=== PATIENT | female | born 1985 | race Caucasian/White ===

== ENCOUNTER 2018-12-23 16:17 | Emergency (ER) | payer OTHER, SELFPAY ==
[2018-12-23 16:42] LABS: #Eosinphils 0.1 thou/uL (0.0-0.7); #Lymphocytes 1.5 thou/uL (1.20-3.40); #Monocytes 0.5 thou/uL (0.11-0.59); #Neutrophils 4.1 thou/uL (1.40-6.50); %Basophils 0.5 % (0.0-1.0); %Eosinophils 2.1 % (0.0-10.0); %Monocytes 7.7 % (0.0-10.0); %Neutrophils 65.8 % (42.0-75.0); Hemoglobin 14.8 g/dL (12.0-16.0); Mean Corpuscular HGB CONC 35.4 g/dL (32.0-36.0); Mean Corpuscular Hemoglobin 30.9 pg (27.0-31.0); Mean Corpuscular Volume 87.4 fL (78.0-98.0); Mean Platelet Volume 7.6 fL (7.4-10.4); Platelet Count 220 thou/uL (130-400); RBC Distribution Width 11.6 % (11.5-14.5); Red Blood Cell (RBC) Count 4.77 mill/uL (4.20-5.40); White Blood Cell (WBC) Count 6.3 thou/uL (4.8-10.8)
--- NOTE | 2018-12-23 16:48 | RAD ---
XR Chest 1 View Portable HISTORY: Chest pain and shortness of breath COMPARISON: None FINDINGS: The heart size is normal. The lungs are well expanded without focal areas of consolidation, pneumothorax or pleural effusions. IMPRESSION: No radiographic evidence of acute cardiopulmonary process.
[2018-12-23 16:58] LABS: ALT (SGPT) 18 U/L (8-55); AST (SGOT) 23 U/L (5-34); Albumin 4.7 g/dL (3.5-5.0); Alkaline Phosphatase 49 U/L (40-150); Anion Gap 12 mmol/L (10-20); BUN (Urea Nitrogen) 7 mg/dL (7.0-18.7); CK (CPK) 165 U/L (29-168); Calc. Creatinine Clearance 0 mL/min (70-130); Calcium 9.6 mg/dL (7.8-10.44); Carbon Dioxide 26 mmol/L (22-29); Chloride 105 mmol/L (98-107); Estimated GFR-MDRD 66; Globulin 2.7 g/dL (2.4-3.5); Glucose 107 mg/dL (70-105); Protein, Total 7.4 g/dL (6.0-8.3); Sodium 139 mmol/L (136-145)
[2018-12-23 20:16] LABS: Troponin I Less than 0.010 ng/mL (< 0.028)
[2018-12-23] MEDS ORDERED: Lorazepam 1 MG TAB ONE (21:47)
[2018-12-23 22:35] LABS: BHCG - Serum Negative (NEGATIVE); Pregs Control Background? CLEAR/WHITE (CLR/WHITE); Pregs Control Bar Appear? YES (CONTROL BAR)
--- NOTE | 2018-12-23 23:04 | CT ---
EXAM: CT angiogram of the chest including 3-D rendering: HISTORY: Chest heaviness shortness of breath dizziness COMPARISON: None FINDINGS: There is adequate opacification of the pulmonary arteries. No evidence for aortic aneurysm or dissection. No convincing CT evidence for acute pulmonary embolism. No significant acute pulmonary parenchymal process. No evidence for mediastinal mass or adenopathy. No evidence for pleural or pericardial effusion. The visualized upper abdomen is unremarkable. 0.6 cm diameter pleural-based nodule in the left anteri or costophrenic angle region. IMPRESSION: No convincing CT evidence for acute pulmonary embolism. 0.6 cm diameter pleural-based nodule in the anterior left costophrenic angle region. Code lung nodule
== END 2018-12-23 23:15 | disposition home or self-care (01) ==
LOC: ERS 16:17
DX: R91.1 Solitary pulmonary nodule (principal); L03.112 Cellulitis of left axilla; B86 Scabies; F41.9 Anxiety disorder, unspecified; F17.210 Nicotine dependence, cigarettes, uncomplicated
CPT/HCPCS: 36415; 71045; 71275; 80053; 82550; 84484; 84703; 85025; 85379; 93005; 96360

== ENCOUNTER 2019-02-14 03:15 | Emergency (ER) | payer SELFPAY ==
[2019-02-14] MEDS ORDERED: hydrOXYzine 25 MG TAB ONE (04:31)
== END 2019-02-14 05:45 | disposition home or self-care (01) ==
LOC: ERS 03:15
DX: R21 Rash and other nonspecific skin eruption (principal); E03.9 Hypothyroidism, unspecified; F41.9 Anxiety disorder, unspecified; F17.210 Nicotine dependence, cigarettes, uncomplicated
CPT/HCPCS: 99283

== ENCOUNTER 2019-02-28 07:55 | Emergency (ER) | payer SELFPAY ==
[2019-02-28 09:01] LABS: ALT (SGPT) 17 U/L (8-55); AST (SGOT) 24 U/L (5-34); Acetaminophen Less than 6.0 mcg/mL (10.0-30.0); Albumin 4.4 g/dL (3.5-5.0); Alcohol Less than 10 mg/dL (Less than 10); Alkaline Phosphatase 48 U/L (40-150); Anion Gap 12 mmol/L (10-20); BUN (Urea Nitrogen) 8 mg/dL (7.0-18.7); Bilirubin, Total 0.8 mg/dL (0.2-1.2); Calc. Creatinine Clearance 0 mL/min (70-130); Calcium 9.3 mg/dL (7.8-10.44); Carbon Dioxide 24 mmol/L (22-29); Chloride 106 mmol/L (98-107); Estimated GFR-MDRD 83; Globulin 2.6 g/dL (2.4-3.5); Glucose 94 mg/dL (70-105); Potassium 3.1 mmol/L (3.5-5.1); Salicylate Less than 8.0 mg/dL (15.0-30.0); Sodium 139 mmol/L (136-145)
[2019-02-28 09:09] LABS: #Basophils 0.1 thou/uL (0.0-0.2); #Eosinphils 0.1 thou/uL (0.0-0.7); #Lymphocytes 2.2 thou/uL (1.20-3.40); #Monocytes 0.5 thou/uL (0.11-0.59); #Neutrophils 2.5 thou/uL (1.40-6.50); %Basophils 1.4 % (0.0-1.0); %Eosinophils 2.2 % (0.0-10.0); %Lymphocytes 40.7 % (21.0-51.0); %Neutrophils 46.7 % (42.0-75.0); Hemoglobin 13.2 g/dL (12.0-16.0); Mean Corpuscular HGB CONC 36.3 g/dL (32.0-36.0); Mean Corpuscular Hemoglobin 31.3 pg (27.0-31.0); Mean Corpuscular Volume 86.3 fL (78.0-98.0); Platelet Count 117 thou/uL (130-400); Platelet Morphology Comment Appears Decreased; RBC Distribution Width 11.6 % (11.5-14.5); RBC Morphology Normal; Red Blood Cell (RBC) Count 4.24 mill/uL (4.20-5.40); White Blood Cell (WBC) Count 5.3 thou/uL (4.8-10.8)
[2019-02-28] MEDS ORDERED: Lorazepam 2 MG/ML VIAL ONE (09:19)
[2019-02-28 09:39] LABS: Bacteria/HPF 2+ HPF (None Seen); Bilirubin Negative (Negative); Blood, Urine 2+ (Negative); Clarity Turbid (Clear); Glucose, Urine (Dipstick) Normal (Negative); Leukocyte Negative Leu/uL (Negative); Nitrite Negative (Negative); Protein, Urine (Dipstick) Negative (Neg-Trace); RBC/HPF 0-3 HPF (0-3); Squamous Epithelial 0-3 HPF (0-3); Urobilinogen Normal mg/dL (Less than 2); WBC/HPF 0-3 HPF (0-3)
[2019-02-28 09:45] LABS: Pregnancy Test - Urine (BHCG) Negative (Negative); Pregu Control Background? CLEAR/WHITE (CLR/WHITE); Pregu Control Bar Appear? YES (CONTROL BAR); Specific Gravity 1.004 (1.002-1.036)
[2019-02-28 09:48] LABS: Amphetamine Detected (NotDetected); Barbiturates Screen Not Detected (NotDetected); Benzodiazepine Screen Detected (NotDetected); Cocaine Metabolite Screen Not Detected (NotDetected); Medtox Control Line Valid? VALID (VALID); Medtox Reader # READER 1; Methadone Not Detected (NotDetected); Methamphetamine Detected (NotDetected); Opiate Screen Detected (NotDetected); Oxycodone Screen Not Detected (NotDetected); Phencyclidine (PCP) Not Detected (NotDetected); THC/Cannabinoid Screen Not Detected (NotDetected); Tricyclic Screen Not Detected (NotDetected)
[2019-02-28] MEDS ORDERED: Nicotine 14 MG PATCH TOP SCH (18:15)
[2019-02-28] MEDS ORDERED: Nicotine 14 MG PATCH ONE (18:34)
[2019-02-28] MEDS ORDERED: hydrOXYzine 25 MG TAB ONE (21:02)
[2019-03-01] MEDS ORDERED: Levothyroxine Sodium 100 MCG TAB PO SCH (06:00)
[2019-03-01] MEDS ORDERED: Bupropion 150 MG XL TAB PO SCH (09:00)
[2019-03-01] MEDS ORDERED: Ibuprofen 800 MG TAB ONE (15:01)
== END 2019-02-28 16:20 | disposition home or self-care (01) ==
LOC: ERS 07:55
DX: F23 Brief psychotic disorder (principal); F15.10 Other stimulant abuse, uncomplicated; F22 Delusional disorders; F41.9 Anxiety disorder, unspecified; I25.2 Old myocardial infarction; E03.9 Hypothyroidism, unspecified; F31.9 Bipolar disorder, unspecified; F90.9 Attention-deficit hyperactivity disorder, unspecified type; F17.210 Nicotine dependence, cigarettes, uncomplicated; Z79.899 Other long term (current) drug therapy
CPT/HCPCS: 36415; 80053; 80306; 80307; 81003; 81015; 81025; 84443; 85025; 87077; 87086; 93005; 96372; J2060

== ENCOUNTER 2019-03-05 22:08 | Emergency (ER) | payer SELFPAY ==
--- NOTE | 2019-03-05 22:59 | RAD ---
EXAM: Single view of the chest HISTORY: Chest pain COMPARISON: 12/23/2018 FINDINGS: Single view of the chest shows a normal sized cardiomediastinal silhouette. There is no jonathan dence of consolidation, mass, or pleural effusion. The bones are unremarkable. IMPRESSION: No evidence of acute cardiopulmonary disease
--- NOTE | 2019-03-05 23:36 | ULT ---
EXAM: Right upper extremity venous ultrasound HISTORY: Right upper extremity pain and edema COMPARISON: None TECHNIQUE: Multiplanar grayscale and color Doppler images were obtained in a right upper extremity ve nous ultrasound. Spectral analysis of the Doppler waveforms were performed. FINDINGS: The internal jugular vein demonstrates normal compression and flow without evidence of thrombus. The subclavian vein demonstrates normal flow and augmentation without evidence of thrombus. The axillary and brachial veins demonstrate normal compression, flow, and augmentation without eviden ce of thrombus. The deep venous structures distal to the elbow are patent without thrombus. Clot is seen in the right basilic vein from the mid upper arm to the proximal forearm The cephalic vein is patent. IMPRESSION: 1. No evidence of DVT. 2. Basilic vein thrombus
== END 2019-03-05 23:59 | disposition home or self-care (01) ==
LOC: ERS 22:08
DX: I80.8 Phlebitis and thrombophlebitis of other sites (principal); R07.9 Chest pain, unspecified; I25.2 Old myocardial infarction; E03.9 Hypothyroidism, unspecified; F41.9 Anxiety disorder, unspecified; F31.9 Bipolar disorder, unspecified; F90.9 Attention-deficit hyperactivity disorder, unspecified type; F17.210 Nicotine dependence, cigarettes, uncomplicated; Z79.899 Other long term (current) drug therapy
CPT/HCPCS: 71045; 93005

== ENCOUNTER 2019-03-27 00:27 | Emergency (ER) | payer SELFPAY | END 2019-03-27 01:10 | disposition home or self-care (01) | LOC: ERS 00:27 | DX: L02.31 Cutaneous abscess of buttock (principal); E03.9 Hypothyroidism, unspecified; F41.9 Anxiety disorder, unspecified; F31.9 Bipolar disorder, unspecified; F90.9 Attention-deficit hyperactivity disorder, unspecified type; F43.10 Post-traumatic stress disorder, unspecified; F17.210 Nicotine dependence, cigarettes, uncomplicated; Z86.73 Personal history of transient ischemic attack (TIA), and cerebral infarction without residual deficits; Z79.899 Other long term (current) drug therapy | CPT/HCPCS: 99282 ==

== ENCOUNTER 2019-04-16 01:11 | Emergency (ER) | payer SELFPAY ==
[2019-04-16 03:35] LABS: #Basophils 0.1 thou/uL (0.0-0.2); #Eosinphils 0.2 thou/uL (0.0-0.7); #Lymphocytes 2.5 thou/uL (1.20-3.40); #Monocytes 0.6 thou/uL (0.11-0.59); #Neutrophils 2.2 thou/uL (1.40-6.50); %Basophils 1.4 % (0.0-1.0); %Eosinophils 3.6 % (0.0-10.0); %Lymphocytes 44.7 % (21.0-51.0); %Monocytes 10.2 % (0.0-10.0); %Neutrophils 40.2 % (42.0-75.0); Hemoglobin 13.5 g/dL (12.0-16.0); Mean Corpuscular HGB CONC 35.9 g/dL (32.0-36.0); Mean Corpuscular Hemoglobin 31.4 pg (27.0-31.0); Mean Corpuscular Volume 87.3 fL (78.0-98.0); Mean Platelet Volume 7.8 fL (7.4-10.4); Platelet Count 115 thou/uL (130-400); RBC Distribution Width 11.6 % (11.5-14.5); White Blood Cell (WBC) Count 5.6 thou/uL (4.8-10.8)
[2019-04-16 03:54] LABS: ALT (SGPT) 15 U/L (8-55); AST (SGOT) 21 U/L (5-34); Acetaminophen Less than 6.0 mcg/mL (10.0-30.0); Albumin 4.3 g/dL (3.5-5.0); Alcohol Less than 10 mg/dL (Less than 10); Alkaline Phosphatase 46 U/L (40-110); Anion Gap 14 mmol/L (10-20); BUN (Urea Nitrogen) 6 mg/dL (7.0-18.7); Bilirubin, Total 0.4 mg/dL (0.2-1.2); Calc. Creatinine Clearance 0 mL/min (70-130); Carbon Dioxide 24 mmol/L (22-29); Chloride 104 mmol/L (98-107); Estimated GFR-MDRD 81; Globulin 2.7 g/dL (2.4-3.5); Glucose 82 mg/dL (70-105); Potassium 3.6 mmol/L (3.5-5.1); Salicylate Less than 8.0 mg/dL (15.0-30.0); Sodium 138 mmol/L (136-145)
[2019-04-16 04:41] LABS: Bacteria/HPF None Seen HPF (None Seen); Bilirubin Negative (Negative); Blood, Urine Trace (Negative); Clarity Clear (Clear); Glucose, Urine (Dipstick) Normal (Negative); Leukocyte Negative Leu/uL (Negative); Nitrite Negative (Negative); Pregnancy Test - Urine (BHCG) Negative (Negative); Pregu Control Background? CLEAR/WHITE (CLR/WHITE); Pregu Control Bar Appear? YES (CONTROL BAR); Protein, Urine (Dipstick) Negative (Neg-Trace); RBC/HPF None Seen HPF (0-3); Specific Gravity 1.006 (1.002-1.036); Squamous Epithelial 0-3 HPF (0-3); Urobilinogen Normal mg/dL (Less than 2); WBC/HPF None Seen HPF (0-3)
[2019-04-16 04:51] LABS: Amphetamine Detected (NotDetected); Barbiturates Screen Not Detected (NotDetected); Benzodiazepine Screen Detected (NotDetected); Cocaine Metabolite Screen Not Detected (NotDetected); Medtox Control Line Valid? VALID (VALID); Medtox Reader # READER 1; Methadone Not Detected (NotDetected); Methamphetamine Detected (NotDetected); Opiate Screen Detected (NotDetected); Oxycodone Screen Not Detected (NotDetected); Phencyclidine (PCP) Not Detected (NotDetected); THC/Cannabinoid Screen Not Detected (NotDetected); Tricyclic Screen Not Detected (NotDetected)
== END 2019-04-16 05:15 | disposition home or self-care (01) ==
LOC: ERS 01:11
DX: F11.10 Opioid abuse, uncomplicated (principal); F15.10 Other stimulant abuse, uncomplicated; I25.2 Old myocardial infarction; E03.9 Hypothyroidism, unspecified; F31.9 Bipolar disorder, unspecified; F41.9 Anxiety disorder, unspecified; F90.9 Attention-deficit hyperactivity disorder, unspecified type; F17.210 Nicotine dependence, cigarettes, uncomplicated; F43.10 Post-traumatic stress disorder, unspecified; R11.0 Nausea; R19.7 Diarrhea, unspecified; Z79.899 Other long term (current) drug therapy
CPT/HCPCS: 36415; 36416; 80053; 80306; 80307; 81003; 81015; 81025; 84443; 85025; 93005

== ENCOUNTER 2019-05-31 22:16 | Emergency (ER) | payer SELFPAY ==
[2019-05-31] MEDS ORDERED: Lorazepam 2 MG/ML VIAL ONE ×2 (23:46→23:54)
[2019-05-31] MEDS ORDERED: diphenhydrAMINE 50 MG/ML VIAL ONE (23:54)
[2019-05-31] MEDS ORDERED: Haloperidol Lactate 5 MG/ML VIAL ONE (23:54)
[2019-06-01 01:27] LABS: #Lymphocytes 0.8 thou/uL (1.20-3.40); #Monocytes 0.4 thou/uL (0.11-0.59); #Neutrophils 7.4 thou/uL (1.40-6.50); %Basophils 0.4 % (0.0-1.0); %Eosinophils 0.3 % (0.0-10.0); %Lymphocytes 9.4 % (21.0-51.0); %Monocytes 4.3 % (0.0-10.0); %Neutrophils 85.6 % (42.0-75.0); Hemoglobin 11.8 g/dL (12.0-16.0); Mean Corpuscular Hemoglobin 31.2 pg (27.0-31.0); Mean Corpuscular Volume 89.2 fL (78.0-98.0); Mean Platelet Volume 7.5 fL (7.4-10.4); Platelet Count 157 thou/uL (130-400); RBC Distribution Width 12.1 % (11.5-14.5); Red Blood Cell (RBC) Count 3.77 mill/uL (4.20-5.40); White Blood Cell (WBC) Count 8.6 thou/uL (4.8-10.8)
[2019-06-01 01:48] LABS: ALT (SGPT) 24 U/L (8-55); AST (SGOT) 33 U/L (5-34); Acetaminophen Less than 6.0 mcg/mL (10.0-30.0); Albumin 3.7 g/dL (3.5-5.0); Alcohol Less than 10 mg/dL (Less than 10); Alkaline Phosphatase 39 U/L (40-110); Anion Gap 11 mmol/L (10-20); BUN (Urea Nitrogen) 7 mg/dL (7.0-18.7); Bilirubin, Total 0.6 mg/dL (0.2-1.2); CK (CPK) 767 U/L (29-168); Calc. Creatinine Clearance 0 mL/min (70-130); Calcium 7.8 mg/dL (7.8-10.44); Carbon Dioxide 20 mmol/L (22-29); Chloride 109 mmol/L (98-107); Estimated GFR-MDRD 86; Globulin 2.2 g/dL (2.4-3.5); Glucose 103 mg/dL (70-105); Potassium 3.3 mmol/L (3.5-5.1); Protein, Total 5.9 g/dL (6.0-8.3); Salicylate Less than 8.0 mg/dL (15.0-30.0); Sodium 137 mmol/L (136-145)
[2019-06-01 03:07] LABS: Bacteria/HPF 3+ HPF (None Seen); Bilirubin Negative (Negative); Blood, Urine Negative (Negative); Clarity Clear (Clear); Glucose, Urine (Dipstick) Normal (Negative); Leukocyte 75 Leu/uL (Negative); Nitrite 2+ (Negative); Pregnancy Test - Urine (BHCG) Negative (Negative); Pregu Control Background? CLEAR/WHITE (CLR/WHITE); Pregu Control Bar Appear? YES (CONTROL BAR); Protein, Urine (Dipstick) 20 mg/dL (Neg-Trace); RBC/HPF 0-3 HPF (0-3); Specific Gravity 1.007 (1.002-1.036); Squamous Epithelial 0-3 HPF (0-3); Urobilinogen Normal mg/dL (Less than 2)
[2019-06-01 03:12] LABS: Amphetamine Detected (NotDetected); Barbiturates Screen Not Detected (NotDetected); Benzodiazepine Screen Detected (NotDetected); Cocaine Metabolite Screen Not Detected (NotDetected); Medtox Control Line Valid? VALID (VALID); Medtox Reader # READER 1; Methadone Not Detected (NotDetected); Methamphetamine Detected (NotDetected); Opiate Screen Detected (NotDetected); Oxycodone Screen Not Detected (NotDetected); Phencyclidine (PCP) Not Detected (NotDetected); THC/Cannabinoid Screen Not Detected (NotDetected); Tricyclic Screen Not Detected (NotDetected)
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
== END 2019-06-01 11:43 | disposition home or self-care (01) ==
LOC: ERS 22:16
DX: F19.10 Other psychoactive substance abuse, uncomplicated (principal); E03.9 Hypothyroidism, unspecified; F17.210 Nicotine dependence, cigarettes, uncomplicated; Z79.899 Other long term (current) drug therapy
CPT/HCPCS: 36416; 51701; 70450; 80053; 80306; 80307; 81003; 81015; 81025; 82550; 84443; 85025; 93005; 94760; 96361; 96372; 96374; A4353; J1200; J1630; J2060

== ENCOUNTER 2019-06-27 00:34 | Inpatient (IN) | payer SELFPAY ==
[2019-06-27] MEDS ORDERED: Succinylcholine Chloride 20 MG/ML 10 ml SYRINGE FS ONE (00:46)
[2019-06-27] MEDS ORDERED: Propofol 1,000 MG/100 ML VIAL IV ONE (01:03)
[2019-06-27 01:07] LABS: Hemoglobin 14.5 g/dL (12.0-16.0); Mean Corpuscular HGB CONC 34.1 g/dL (32.0-36.0); Mean Corpuscular Hemoglobin 30.6 pg (27.0-31.0); Mean Corpuscular Volume 89.7 fL (78.0-98.0); Mean Platelet Volume 7.4 fL (7.4-10.4); Platelet Count 336 thou/uL (130-400); RBC Distribution Width 11.9 % (11.5-14.5); Red Blood Cell (RBC) Count 4.73 mill/uL (4.20-5.40); White Blood Cell (WBC) Count 16.3 thou/uL (4.8-10.8)
[2019-06-27 01:13] LABS: BHCG - Serum Negative (NEGATIVE); Pregs Control Background? CLEAR/WHITE (CLR/WHITE); Pregs Control Bar Appear? YES (CONTROL BAR)
[2019-06-27 01:22] LABS: Band 2 % (5-11); Lymphocytes 7 % (21-51); MDiff Complete? YES; Monocytes 5 % (0-10); Neutrophil 86 % (42-75); Platelet Morphology Comment Appears Adequate; RBC Morphology Normal
[2019-06-27 01:22] LABS: Actual Bicarbonate (HCO3a) 16.3 mEq/L (22-28); Analyzer IN Cardio ER; Base Excess (BEa) -9.9 mEq/L (-2.0 to +3.0); CO2 Tension 36.8 mmHg (35.0-45.0); Calcium, Ionized 1.24 mmol/L (1.12-1.30); Carboxyhemoglobin (COHb) 4.1 gm% (0.0-3.0); Hemoglobin (Hb) 14.6 g/dL (12.0-16.0); O2 Tension (PaO2) 150.7 mmHg (80.0-100.0); Potassium - ABG Lab 3.24 mmol/L (3.70-5.30); pH, Arterial 7.26 (7.35-7.45)
[2019-06-27 01:24] LABS: Puncture Site LRA
[2019-06-27 01:26] LABS: ALT (SGPT) 27 U/L (8-55); AST (SGOT) 29 U/L (5-34); Acetaminophen Less than 6.0 mcg/mL (10.0-30.0); Albumin 4.9 g/dL (3.5-5.0); Alcohol Less than 10 mg/dL (Less than 10); Alkaline Phosphatase 57 U/L (40-110); Anion Gap 25 mmol/L (10-20); BUN (Urea Nitrogen) 10 mg/dL (7.0-18.7); Bilirubin, Total 0.5 mg/dL (0.2-1.2); Calc. Creatinine Clearance 0 mL/min (70-130); Calcium 9.7 mg/dL (7.8-10.44); Carbon Dioxide 13 mmol/L (22-29); Chloride 100 mmol/L (98-107); Estimated GFR-MDRD 48; Globulin 3.1 g/dL (2.4-3.5); Glucose 270 mg/dL (70-105); Potassium 3.4 mmol/L (3.5-5.1); Salicylate Less than 8.0 mg/dL (15.0-30.0); Sodium 135 mmol/L (136-145)
[2019-06-27 01:45] LABS: Bilirubin Negative (Negative); Blood, Urine Negative (Negative); Clarity Clear (Clear); Glucose, Urine (Dipstick) Normal (Negative); Leukocyte Negative Leu/uL (Negative); Nitrite Negative (Negative); Protein, Urine (Dipstick) Negative (Neg-Trace); Urobilinogen Normal mg/dL (Less than 2)
[2019-06-27 01:54] LABS: Amphetamine Not Detected (NotDetected); Barbiturates Screen Not Detected (NotDetected); Benzodiazepine Screen Not Detected (NotDetected); Cocaine Metabolite Screen Not Detected (NotDetected); Medtox Control Line Valid? VALID (VALID); Medtox Reader # READER 1; Methadone Not Detected (NotDetected); Methamphetamine Not Detected (NotDetected); Opiate Screen Not Detected (NotDetected); Oxycodone Screen Not Detected (NotDetected); Phencyclidine (PCP) Not Detected (NotDetected); THC/Cannabinoid Screen Not Detected (NotDetected); Tricyclic Screen Not Detected (NotDetected)
[2019-06-27] MEDS ORDERED: Adacel (T-DAP) 0.5 ML SYRINGE ONE (02:02)
[2019-06-27] MEDS ORDERED: Ketamine 50 MG/ML (10ML VIAL) ONE (02:45)
[2019-06-27] MEDS ORDERED: Propofol BOLUS 1,000 MG/100 ML VIAL IV PRN (03:26)
[2019-06-27] MEDS ORDERED: Lorazepam 2 MG/ML VIAL SLOW IVP PRN (03:26)
[2019-06-27] MEDS ORDERED: DISCONTINUE PREVIOUS NARCOTIC PAIN MEDICATIONS AND BENZODIAZEPINES FS SCH (03:26)
[2019-06-27] MEDS ORDERED: Fentanyl BOLUS 250 ML IVPB PRN (03:26)
[2019-06-27] MEDS ORDERED: Morphine 2 MG/ML SYRINGE SLOW IVP PRN (03:26)
[2019-06-27] MEDS ORDERED: fentaNYL Citrate/PF 2,000 MCG in Sodium Chloride 0.9% 60 ML IV SCH (03:26)
[2019-06-27] MEDS ORDERED: Sodium Chloride 0.9% (PF) 10 ML VIAL FS PRN (03:28)
[2019-06-27] MEDS: Sodium Chloride 0.9% 1,000 ML IV SCH ×3 (03:30→19:39)
[2019-06-27 04:18] LABS: #Eosinphils 0.1 thou/uL (0.0-0.7); #Lymphocytes 2.4 thou/uL (1.20-3.40); #Neutrophils 13.4 thou/uL (1.40-6.50); %Basophils 0.2 % (0.0-1.0); %Eosinophils 0.4 % (0.0-10.0); %Lymphocytes 13.7 % (21.0-51.0); %Monocytes 10.9 % (0.0-10.0); %Neutrophils 74.9 % (42.0-75.0); Hemoglobin 13.4 g/dL (12.0-16.0); Mean Corpuscular HGB CONC 33.5 g/dL (32.0-36.0); Mean Corpuscular Hemoglobin 30.5 pg (27.0-31.0); Mean Platelet Volume 7.5 fL (7.4-10.4); Platelet Count 281 thou/uL (130-400); White Blood Cell (WBC) Count 17.9 thou/uL (4.8-10.8)
[2019-06-27 04:36] LABS: Anion Gap 14 mmol/L (10-20); BUN (Urea Nitrogen) 9 mg/dL (7.0-18.7); Calc. Creatinine Clearance 99 mL/min (70-130); Calcium 8.9 mg/dL (7.8-10.44); Carbon Dioxide 22 mmol/L (22-29); Chloride 106 mmol/L (98-107); Estimated GFR-MDRD 75; Glucose 77 mg/dL (70-105); Potassium 3.2 mmol/L (3.5-5.1); Sodium 139 mmol/L (136-145)
[2019-06-27] MEDS ORDERED: Ziprasidone 20 MG VIAL IM PRN (08:02)
[2019-06-27] MEDS ORDERED: Ziprasidone 20 MG VIAL IM SCH (08:15)
[2019-06-27] MEDS: Pantoprazole 40 MG VIAL IVP SCH (08:19)
[2019-06-27] MEDS: Propofol 1,000 MG/100 ML VIAL IV PRN ×3 (08:19→19:39)
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
--- NOTE | 2019-06-27 09:06 | RAD ---
PORTABLE CHEST ONE VIEW: 06/27/2019 12:35 a.m. HISTORY: Respiratory failure. FINDINGS: There is an endotracheal tube with the tip at the level of the clavicular heads. A nasogastric tube c an be traced into the stomach with the tip excluded from the film. The heart size is normal. The lung s are clear. POS: [facility]
--- NOTE | 2019-06-27 09:07 | RAD ---
RIGHT HAND THREE VIEWS: HISTORY: Trauma. Right hand pain. FINDINGS: No acute fracture or dislocation is seen. No radiopaque foreign body is identified. POS: [facility]
--- NOTE | 2019-06-27 09:09 | RAD ---
PORTABLE CHEST ONE VIEW: 06/27/2019 3:55 a.m. HISTORY: Respiratory failure. COMPARISON: Exam from the previous day. FINDINGS: Endotracheal tube and nasogastric tube remain in place. Heart size is normal. Lungs are clear. IMPRESSION: Stable examination. POS: [facility]
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
[2019-06-27] MEDS: Levothyroxine 100 MCG SDV IVP SCH (10:42)
[2019-06-27] MEDS ORDERED: Haloperidol Lactate 5 MG/ML VIAL SLOW IVP PRN (15:54)
[2019-06-27] MEDS: Haloperidol Lactate 5 MG/ML VIAL SLOW IVP SCH ×2 (16:05→21:50)
[2019-06-27] MEDS: Ziprasidone 20 MG VIAL IM SCH (19:40)
[2019-06-27] MEDS ORDERED: FLU VACC QS2019-20(6MOS UP)/PF 60 MCG/0.5 ML SYRINGE IM ONE (21:00)
[2019-06-27] MEDS ORDERED: Acetaminophen 650 MG Suppository PR PRN (21:20)
--- NOTE | 2019-06-27 21:42 | RAD ---
EXAM: Portable chest PROVIDED CLINICAL HISTORY: Fever COMPARISON: 06/27/2019 3:55 AM FINDINGS: Significant interval change with respect to the prior examination is not apparent. IMPRESSION: As above.
[2019-06-27 22:05] LABS: Bilirubin Negative (Negative); Blood, Urine 1+ (Negative); Clarity Turbid (Clear); Glucose, Urine (Dipstick) Normal (Negative); Leukocyte 75 Leu/uL (Negative); Nitrite Negative (Negative); Protein, Urine (Dipstick) 20 mg/dL (Neg-Trace); RBC/HPF 21-50 HPF (0-3); Squamous Epithelial None Seen HPF (0-3); Urobilinogen Normal mg/dL (Less than 2)
[2019-06-27 22:09] LABS: Bacteria/HPF Rare-Few HPF (None Seen)
[2019-06-27] MEDS: cefTRIAXone\\ROCEPHIN 1 GM in Sodium Chloride 0.9% 100 ML IVPB SCH (22:28)
[2019-06-28 00:05] VITALS: BMI 24.9
[2019-06-28] MEDS: Propofol 1,000 MG/100 ML VIAL IV PRN (00:22)
[2019-06-28] MEDS: Haloperidol Lactate 5 MG/ML VIAL SLOW IVP SCH (03:20)
[2019-06-28] MEDS: Sodium Chloride 0.9% 1,000 ML IV SCH (03:29)
[2019-06-28 04:10] LABS: #Eosinphils 0.2 thou/uL (0.0-0.7); #Lymphocytes 1.8 thou/uL (1.20-3.40); #Monocytes 0.9 thou/uL (0.11-0.59); #Neutrophils 5.3 thou/uL (1.40-6.50); %Basophils 0.4 % (0.0-1.0); %Lymphocytes 22.5 % (21.0-51.0); %Monocytes 10.8 % (0.0-10.0); %Neutrophils 64.3 % (42.0-75.0); Hemoglobin 12.5 g/dL (12.0-16.0); Mean Corpuscular HGB CONC 35.1 g/dL (32.0-36.0); Mean Corpuscular Hemoglobin 32.3 pg (27.0-31.0); Mean Platelet Volume 8.2 fL (7.4-10.4); Platelet Count 196 thou/uL (130-400); RBC Distribution Width 11.9 % (11.5-14.5); Red Blood Cell (RBC) Count 3.87 mill/uL (4.20-5.40); White Blood Cell (WBC) Count 8.2 thou/uL (4.8-10.8)
[2019-06-28 04:31] LABS: Anion Gap 11 mmol/L (10-20); BUN (Urea Nitrogen) 15 mg/dL (7.0-18.7); Calc. Creatinine Clearance 71 mL/min (70-130); Calcium 8.5 mg/dL (7.8-10.44); Carbon Dioxide 22 mmol/L (22-29); Chloride 113 mmol/L (98-107); Estimated GFR-MDRD 52; Glucose 96 mg/dL (70-105); Potassium 3.2 mmol/L (3.5-5.1); Sodium 143 mmol/L (136-145)
[2019-06-28] MEDS: Ziprasidone 20 MG VIAL IM SCH ×2 (08:50→23:53)
[2019-06-28] MEDS: Enoxaparin Sodium 40 MG/0.4 ML SYRINGE SC SCH (08:50)
[2019-06-28] MEDS: Levothyroxine 100 MCG SDV IVP SCH (08:53)
[2019-06-28] MEDS: Pantoprazole 40 MG VIAL IVP SCH (08:54)
[2019-06-28] MEDS ORDERED: Potassium Chloride 40 MEQ in Sodium Chloride 0.45% 1,000 ML IV SCH (11:45)
[2019-06-28] MEDS ORDERED: Potassium Chloride 20 MEQ TAB PO SCH (11:45)
--- NOTE | 2019-06-28 11:48 | PRG ---
DATE OF SERVICE: 06/28/2019 SERVICE: Pulmonary Medicine. INTERVAL HISTORY: The patient is doing great from a mentation standpoint. This morning, I put her on a spontaneous breathing trial. She is on 30 mcg of propofol, but awake and comfortable. She is breathing quite well. She was cool, calm, and collected. We are going to do what we can to turn off the sedation and see if she stays that way. If she does, we will consider extubating her. She cannot provide any additional elements of the history currently. PHYSICAL EXAMINATION: VITAL SIGNS: Afebrile. Pulse rate 111, blood pressure 119/80, respirations are 21, saturation 95%, currently on 21% FiO2 and a PEEP of 5. GENERAL: The patient is awake and alert. She is actually heavily sedated. HEENT: Normocephalic and atraumatic. Sclerae white. Conjunctivae pink. Oral mucosa is moist without lesions. LUNGS: Decent air entry with no prolonged expiratory phase or wheezing present. HEART: Normal rate, Regular. ABDOMEN: Soft, nontender, and nondistended. Bowel sounds are positive. MUSCULOSKELETAL: No cyanosis or clubbing. There is no pitting in the bilateral lower extremities. NEUROLOGIC: Grossly nonfocal. LABORATORY DATA: WBC 8.2, hemoglobin 12.5, and platelets are 196,000. Potassium 3.2. Basic metabolic profile is otherwise unremarkable. Creatinine is gently up trending to 1.19. Urine drug screen is completely unremarkable. Alcohol, salicylate, and acetaminophen are negative. Blood cultures x2 are unremarkable. IMAGING DATA: Chest x-ray demonstrates no acute cardiopulmonary abnormality. Endotracheal tube terminates in very good position. Overlying tubes are otherwise noted. There is an enteric catheter coursing midline below the level of the diaphragm. ASSESSMENT: 1. Metabolic encephalopathy. 2. Acute psychosis. 3. Respiratory failure secondary to ketamine administration. DISCUSSION AND PLAN: The patient is doing fine from respiratory standpoint. Mentation velasquez, things improved dramatically. We will put on a spontaneous breathing trial and if she meets criteria, extubation will be considered. IV fluids will be initiated for 24 hours. Potassium will be replaced, and I will repeat potassium tomorrow morning. Critical care time: 30 minutes. Job ID: [id number] [facility]
[2019-06-28] MEDS ORDERED: Haloperidol Lactate 5 MG/ML VIAL IVPB PRN (12:43)
[2019-06-28] MEDS: Acetaminophen 325 MG TAB PO PRN (14:49)
[2019-06-28] MEDS: Ziprasidone 20 MG CAP PO SCH (20:30)
[2019-06-28] MEDS: cefTRIAXone\\ROCEPHIN 1 GM in Sodium Chloride 0.9% 100 ML IVPB SCH (22:47)
[2019-06-29] MEDS: Haloperidol Lactate 5 MG/ML VIAL SLOW IVP SCH (03:24)
[2019-06-29] MEDS: Sodium Chloride 0.9% 1,000 ML IV SCH (03:25)
[2019-06-29 03:27] LABS: #Basophils 0.1 thou/uL (0.0-0.2); #Eosinphils 0.3 thou/uL (0.0-0.7); #Lymphocytes 1.7 thou/uL (1.20-3.40); #Monocytes 0.7 thou/uL (0.11-0.59); #Neutrophils 5.4 thou/uL (1.40-6.50); %Basophils 0.7 % (0.0-1.0); %Eosinophils 3.9 % (0.0-10.0); %Lymphocytes 20.4 % (21.0-51.0); %Monocytes 8.5 % (0.0-10.0); %Neutrophils 66.6 % (42.0-75.0); Hemoglobin 11.4 g/dL (12.0-16.0); Mean Corpuscular HGB CONC 34.1 g/dL (32.0-36.0); Mean Corpuscular Hemoglobin 30.9 pg (27.0-31.0); Mean Corpuscular Volume 90.6 fL (78.0-98.0); Platelet Count 171 thou/uL (130-400); RBC Distribution Width 11.8 % (11.5-14.5); Red Blood Cell (RBC) Count 3.67 mill/uL (4.20-5.40); White Blood Cell (WBC) Count 8.1 thou/uL (4.8-10.8)
[2019-06-29 03:50] LABS: Anion Gap 12 mmol/L (10-20); BUN (Urea Nitrogen) 6 mg/dL (7.0-18.7); Calc. Creatinine Clearance 102 mL/min (70-130); Carbon Dioxide 20 mmol/L (22-29); Chloride 112 mmol/L (98-107); Estimated GFR-MDRD 79; Glucose 89 mg/dL (70-105); Potassium 3.5 mmol/L (3.5-5.1); Sodium 140 mmol/L (136-145)
[2019-06-29] MEDS: Ziprasidone 20 MG VIAL IM SCH (08:17)
[2019-06-29] MEDS: Acetaminophen 325 MG TAB PO PRN ×2 (08:35→21:05)
[2019-06-29] MEDS: Ziprasidone 20 MG CAP PO SCH ×2 (08:35→21:02)
[2019-06-29] MEDS: Enoxaparin Sodium 40 MG/0.4 ML SYRINGE SC SCH (08:35)
[2019-06-29] MEDS: Pantoprazole 40 MG VIAL IVP SCH (08:36)
--- NOTE | 2019-06-29 09:06 | PRG ---
DATE OF SERVICE: 06/29/2019 SUBJECTIVE: The patient was extubated yesterday. She is doing well aside from some paranoid symptoms. OBJECTIVE: VITAL SIGNS: Temperature 98.5, pulse 96, blood pressure 111/68, O2 saturation 96%. HEENT: Unremarkable. NECK: No adenopathy or JVD. CHEST: Clear. CARDIAC: S1, S2. Regular. ABDOMEN: Soft. EXTREMITIES: No edema. LABORATORY DATA: White blood cell count 8.1, hematocrit 33, platelet count 171. Sodium 140, potassium 3.5, chloride 112, CO2 of 20, BUN 6, creatinine 0.8, glucose 89. ASSESSMENT: Status post acute psychosis, requiring mechanical ventilation for purpose of deep sedation. PLAN: She has been extubated. She is medically stable for transfer to a psychiatric facility. Dr. Otero is working with the antipsychotic medications. I have no further recommendations in the case and will sign off. Job ID: [id number]
[2019-06-29] MEDS ORDERED: Haloperidol Lactate 5 MG/ML VIAL SLOW IVP PRN (09:15)
[2019-06-29] MEDS: Levothyroxine Sodium 100 MCG TAB PO SCH ×2 (09:19→09:20)
[2019-06-29] MEDS: Levothyroxine 100 MCG SDV IVP SCH (09:20)
[2019-06-29 21:29] VITALS: BP 111/74; TEMP 98.2
[2019-06-30] MEDS ORDERED: Levothyroxine Sodium 100 MCG TAB PO SCH (06:00)
== END 2019-06-29 21:35 | DRG 208 ==
LOC: ERS 00:34 → CCU 03:13 → T4-B 06-29 13:02
PROVIDERS: ADMIT Specialist; ATTEND Specialist
PROC: 0BH17EZ Insertion of Endotracheal Airway into Trachea, Via Natural or Artificial Opening (ICD-10-PCS; principal; 2019-06-27)
PROC: 5A1935Z Respiratory Ventilation, Less than 24 Consecutive Hours (ICD-10-PCS; 2019-06-27)
DX: J96.00 Acute respiratory failure, unspecified whether with hypoxia or hypercapnia (principal); G93.41 Metabolic encephalopathy; R40.2342 Coma scale, best motor response, flexion withdrawal, at arrival to emergency department; R40.2222 Coma scale, best verbal response, incomprehensible words, at arrival to emergency department; F23 Brief psychotic disorder; E87.2 Acidosis; E03.9 Hypothyroidism, unspecified; I25.2 Old myocardial infarction; F41.9 Anxiety disorder, unspecified; F31.9 Bipolar disorder, unspecified; F98.8 Other specified behavioral and emotional disorders with onset usually occurring in childhood and adolescence; F14.10 Cocaine abuse, uncomplicated; F12.10 Cannabis abuse, uncomplicated; R40.2132 Coma scale, eyes open, to sound, at arrival to emergency department; F19.10 Other psychoactive substance abuse, uncomplicated; F17.210 Nicotine dependence, cigarettes, uncomplicated; S61.411A Laceration without foreign body of right hand, initial encounter; X58.XXXA Exposure to other specified factors, initial encounter; F15.10 Other stimulant abuse, uncomplicated; F43.10 Post-traumatic stress disorder, unspecified; Z88.0 Allergy status to penicillin; Z88.8 Allergy status to other drugs, medicaments and biological substances
CPT/HCPCS: 12001; 31500; 36415; 51702; 71045; 80048; 80053; 80306; 80307; 81003; 82805; 83735; 84443; 84703; 85025; 87040; 87077; 87086; 87186; 90471; 90715; 93005; 94002; 94003; 96361; 96365; 96366; 96374; 96375; C9113; J0696; J1630; J1650; J1956; J2060; J2704; J3480; J3486; J3490

== ENCOUNTER 2019-08-30 08:50 | Emergency (ER) | payer SELFPAY ==
--- NOTE | 2019-08-30 10:15 | RAD ---
LUMBAR SPINE 3 VIEWS: Date: 08/30/2019 HISTORY: Low back pain. FINDINGS/IMPRESSION: Comparison made with exam of 03/10/2016. Vertebral body heights are maintained. No fracture, subluxation, or bony destruction identified. POS: [facility]
== END 2019-08-30 10:55 | disposition home or self-care (01) ==
LOC: ERS 08:50
DX: M54.16 Radiculopathy, lumbar region (principal); Z79.899 Other long term (current) drug therapy
CPT/HCPCS: 72100